=== PATIENT | female | born 1985 | race African-American/Black ===

== ENCOUNTER 2023-10-20 20:39 | Emergency (ER) | payer MEDICAID, OTHER ==
[~2023-10-20] VITALS: Ht 172.7 cm; Wt 93.0 kg
[2023-10-20 20:51] VITALS: BP 133/73; TEMP 98.1; O2SAT 98
[2023-10-20] MEDS ORDERED: FLUCONAZOLE (100 MG) 100 MG TABLET ONE (22:27)
[2023-10-20] MEDS ORDERED: SULFAMETH/TRIMETH 800/160 MG 1 UDTAB TABLET ONE (22:27)
[2023-10-20] MEDS: FLUCONAZOLE (100 MG) 100 MG TABLET PO ONE (22:30)
[2023-10-20] MEDS: SULFAMETH/TRIMETH 800/160 MG 1 UDTAB TABLET PO ONE (22:30)
== END 2023-10-20 22:47 ==
LOC: ER 20:41
DX: Z02.89 Encounter for other administrative examinations (principal); F32.A Depression, unspecified; E03.9 Hypothyroidism, unspecified; Z88.5 Allergy status to narcotic agent; Z88.1 Allergy status to other antibiotic agents